=== PATIENT | male | born 1990 ===

== ENCOUNTER 2025-10-26 13:02 | Emergency (ER) | payer MEDICAID, MEDICARE ==
[~2025-10-26] VITALS: Ht 172.7 cm; Wt 64.0 kg
--- NOTE | 2025-10-26 13:57 | ED.PDOC ---
History of Present Illness HPI Comments 35-year-old male who comes in with chief complaint of anxiety. The patient states that approximately one week ago he had an attack of anxiety. The patient was at home and eating and then had an anxiety attack. The patient states that he had some vomiting as well as some anxiety ever since. He has had a decreased appetite at this time. The patient admits to using marijuana and alcohol occasionally. The patient was able to ambulate into the emergency department's without any difficulty. He currently lives with his parents and he works at a [employer] course. He is not and has no children. The patient has been suicidal in the past but today he is not suicidal or homicidal Chief Complaint: Anxiety Time Seen by MD: 13:35 Reviewed Notes: Nurses Notes, Medications, Allergies (No allergies to medications) Allergies: Coded Allergies: NO KNOWN ALLERGIES (Unverified , 10/26/25) Home Meds Active Scripts Fluoxetine Hcl (Fluoxetine Hcl) 20 Mg Tab, 1 TAB PO QAM, #90 TAB 3 Refills Prov:FLORES JAMES MD 10/26/25 Hydroxyzine Hcl (Hydroxyzine Hcl) 25 Mg Tab, 1 TAB PO TID, #90 TAB 2 Refills Prov:FLORES JAMES MD 10/26/25 Information Source: Patient Mode of Arrival: Ambulatory Severity: Mild Timing: Days Duration: Since onset Prehospital treatment: None Associated signs and symptoms No associated nausea, vomiting or diarrhea Past Medical History PAST MEDICAL HISTORY: Anxiety Past Medical History (Other): The patient has had anxiety in the past and states that he was on fluoxetine Surgical History (Other): Right arm surgery x2 Family History Family History: Family hx of Cancer, Family hx of heart adrian Social History Smoker: Non-Smoker Alcohol: Occasionally Drugs: Marijuana Lives In: Home Constitutional: denies: chills, diaphoresis, fatigue, fever, malaise, sweats, weakness, others EENTM: denies: blurred vision, double vision, ear bleeding, ear discharge, ear drainage, ear pain, ear ringing, eye pain, eye redness, hearing loss, mouth pain, mouth swelling, nasal discharge, nose bleeding, nose congestion, nose pain, photophobia, tearing, throat pain, throat swelling, voice changes, others Respiratory: denies: cough, hemoptysis, orthopnea, SOB at rest, shortness of breath, SOB with excertion, stridor, wheezing, others Cardiovascular: denies: chest pain, dizzy spells, diaphoresis, Dyspnea on exertion, edema, irregular heart beat, left arm pain, lightheadedness, palpitations, PND, syncope, others Gastrointestinal: denies: abdomen distended, abdominal pain, blood streaked bowels, constipated, diarrhea, dysphagia, difficulty swallowing, hematemesis, melena, nausea, poor appetite, poor fluid intake, rectal bleeding, rectal pain, vomiting, others Genitourinary: denies: burning, dysuria, flank pain, frequency, hematuria, incontinence, penile discharge, penile sore, pain, testicle pain, testicle swelling, urgency, others Neurological: denies: dizziness, fainting, headache, left sided numbness, left sided weakness, numbness, paresthesia, pre-existing deficit, right sided numbness, right sided weakness, seizure, speech problems, tingling, tremors, weakness, others Musculoskeletal: denies: back pain, gout, joint pain, joint swelling, muscle pain, muscle stiffness, neck pain, others Integumetry: denies: bruises, change in color, change in hair/nails, dryness, laceration, lesions, lumps, rash, wounds, others Allergic/Immunocompromised: denies: Difficulty Healing, Frequent Infections, Hives, Itching, others Hematologic/Lymphatic: denies: anemia, blood clots, easy bleeding, easy bruising, swollen glands, others Endocrine: denies: excessive hunger, excessive sweating, excessive thirst, excessive urination, flushing, intolerance to cold, intolerance to heat, unexplained weight gain, unexplained weight loss, others Psychiatric: reports: anxiety; denies: bipolar disorder, depression, hopeless, panic disorder, schizophrenia, sleepless, suicidal, others Physical Exam General Appearance: No Apparent Distress HEENT: Normal ENT Inspection, Pharynx Normal, TMs Normal Neck: Full Range of Motion, Non-Tender, Normal, Normal Inspection Respiratory: Chest Non-Tender, Lungs Clear, No Accessory Muscle Use, No Respiratory Distress, Normal Breath Sounds Cardiovascular: No Edema, No JVD, No Murmur, No Gallop, Normal Peripheral Pulses, Regular Rate/Rhythm Breast Exam: Deferred Gastrointestinal: No Organomegaly, Non Tender, No Pulsatile Mass, Normal Bowel Sounds, Soft Genitalia: Deferred Pelvic: Deferred Rectal: Deferred Extremities: No calf tenderness, Normal capillary refill, Normal inspection, Normal range of motion, Non-tender, No pedal edema Musculoskeletal : Apperance: Normal Neurologic: Alert, cyanide pot tender II-XII nml as Tested, No Motor Deficits, No Sensory Deficits, Other (Anxiety) Cerebellar Function: Normal Reflexes: Normal Skin: Dry, Normal Color, Warm Lymphatic: No Adenopathy Was a procedure done? Was a procedure done?: No Differential Dx Considerations may include: Anxiety, generalized weakness, depression X-Ray, Labs, Meds, VS Vital Signs Date Time Temp Pulse Resp B/P (MAP) Pulse Ox O2 Delivery O2 Flow Rate FiO2 10/26/25 13:04 98.3 96 20 148/97 99 98.3 The patient has been medically cleared and we will get a telemedicine psychiatry consult The patient is being discharged at this time The patient is spoke with the psychiatrist and the patient states that he did not want to get inpatient care so the patient is being started on two medications for his issues The patient is being discharged at this time Time of 1ST Reevaluation: 13:56 Reevaluation 1ST: Unchanged Patient Education/Counseling: Diagnosis, Treatment, Prognosis, Need For Follow Up Family Education/Counseling: No Family Present SEPSIS Sepsis Screen Date sepsis recognized/suspect: Oct 26, 2025 Time Sepsis recognized/suspect: 1305 Recent Procedure: No On Antibiotic Therapy: No Respiratory Rate >20: No Heart Rate >90: Yes Temp<36 C (96.8 F) or >38.3 C: No SBP <90 or MAP <65 mmHG: No New Acute Mental Status Change: No Is the patient on CPAP, BIPAP,: No Physician Orders Soc Telemed Psych Consult (10/26/25 13:52) Vital Signs Date Time Temp Pulse Resp B/P (MAP) Pulse Ox O2 Delivery O2 Flow Rate FiO2 10/26/25 13:04 98.3 96 20 148/97 99 98.3 Departure 1 Departure Time of Disposition: 16:02 Impression: Primary Impression: Acute anxiety Disposition: 01 HOME / SELF CARE / HOMELESS Condition: Fair e-Prescriptions Fluoxetine Hcl (Fluoxetine Hcl) 20 Mg Tab 1 TAB PO QAM, #90 TAB 3 Refills Prov: FLORES JAMES MD 10/26/25 Hydroxyzine Hcl (Hydroxyzine Hcl) 25 Mg Tab 1 TAB PO TID, #90 TAB 2 Refills Prov: FLORES JAMES MD 10/26/25 Discharged With: Self Critical Care Note Critical Care Time?: No Stability Stability form required: No Heart Score Heart Score: Heart Score Response (Comments) Value History N/A 0 EKG N/A 0 Age N/A 0 Risk Factors N/A 0 Troponin N/A 0 Total 0 FLORES JAMES MD Oct 26, 2025 13:57
--- NOTE | 2025-10-26 14:48 | DVHINCON2 ---
Date of Service if different f: Oct 26, 2025 Consultation ([facility]) Appetite: Poor Appearance: Stated age, Groomed Psychomotor activity: WNL Behavioral: Cooperative Eye contact: Appropriate Speech: WNL Affect: Mood Congruent Mood: Anxious Thought processes: Linear/Goal-directed Thought content: WNL Suicidal ideations: Absent Homicidal ideations: Absent Orientation: Person, Place, Time, Situation Memory intact: Recent Intellect: Average Abstractability: WNL Concentration: Adequate Attention: Adequate Judgement: WNL Insight: Fair Vitals Vital Signs Date Time Temp Pulse Resp B/P (MAP) Pulse Ox O2 Delivery O2 Flow Rate FiO2 10/26/25 13:04 98.3 96 20 148/97 99 98.3 Treatment plan discussed: With staff Medication adjusted: Yes History of Present Illness Reason for Consult : patient reporting anxiety symptoms HPI : This is [id number] Male self-presented to the ED with chief complaint of anxiety. Patient is evaluated via telepsychiatry. He reports prior history of anxiety and depression since 2018 after sister completed suicide. In 2019 he did use fluoxetine, unknown dose but stop after symptoms improved. He reports chronically feeling depressed with some suicidal thoughts in the past. Today, he denies suicidal or homicidal ideation with plan or intent. He reports anxiety symptoms restarted 2weeks ago, randomly while eating at home. He denies any known triggers, no changes at home, work or relationships. He reports anxiety is often triggered by being around people that are foreign to him, but are typically random. He is very anxious most of the day. Panic attacks present with symptoms of room spinning, short of breath, a sense of doom, lasting several minutes. He also reports decrease appetite and sleep. he sometimes vomits after eating. He often has depressed mood and feelings of hopelessness He denies history of annalisa or psychotic symptoms. He presently denies a uditory/visual hallucinations or paranoid thoughts. Past Psychiatric History : He denies past psych admission, holds or suicide attempts. He is not currently connected to outpatient services. He is not prescribed any psychotropic medications at this time. Past Medical History : He denies Social History : He is single, no children. He lives at home with mom and stepfather. Sister had depression and anxiety, and completed suicide in 2018. He reports occasional use of marijuana and alcohol. He reports use as once every few weeks. Diagnosis: MDD, unspecified anxiety Plan: This is a 35-year-old male, self-presented here for anxiety symptoms. He denies Si/hi with plan, and not meeting hold criteria Patient agrees to restart SSRI, recommend to restart fluoxetine 20mg, 1 cap po qam. Hydroxyzine pamoate 25mg po tid, prn anxiety or insomnia. Discussed to follow up with outpatient resources for therapy Patient declines psychiatric inpatient treatment. Encouraged to avoid substances which can worsen mood and anxiety symptoms Patient may discharge after medical clearance here KOLTON ALLEN DNP Oct 26, 2025 14:48
[2025-10-26] MEDS ORDERED: FLUO20TA42 PO (15:52)
[2025-10-26] MEDS ORDERED: HYDR-3682 PO (15:52)
[2025-10-26 16:37] VITALS: BP 161/101; PULSE 73; RESP 17; TEMP 98.5; O2SAT 99
== END 2025-10-26 17:04 | disposition home or self-care (01) ==
LOC: ER 13:02
DX: F41.9 Anxiety disorder, unspecified (principal); Z79.899 Other long term (current) drug therapy